=== PATIENT | male | born 1945 | race Caucasian/White ===

== ENCOUNTER 2017-03-28 13:29 | Emergency (ER) | payer OTHER ==
[2017-03-28 15:39] LABS: BASOPHILS 0.6 % (0-2); HEMATOCRIT 31.3 % (42.0-54.0); HEMOGLOBIN 10.1 g/dL (13.5-17.5); IMMATURE GRANULOCYTES 0.4 % (0-5); LYMPHOCYTES 30.7 % (15-50); MCH 32.4 pg (26.0-34.0); MCHC 32.3 g/dL (31.0-37.0); MCV 100.3 fL (80.0-100.0); MEAN PLATELET VOLUME 11.8 fL (7.4-10.4); MONOCYTES 8.1 % (2-11); NEUTROPHILS 56.2 % (40-80); RBC 3.12 10x6/uL (4.20-6.10); RDW 18.4 % (11.5-14.5)
[2017-03-28 15:42] LABS: PLATELET COUNT 151 10x3/uL (130-400)
[2017-03-28 15:50] LABS: APTT 41.4 SECONDS (22.8-39.4); INR 1.03 (0.85-1.17); PROTIME 13.4 SECONDS (11.6-15.0)
[2017-03-28 16:13] LABS: ALBUMIN 2.2 g/dL (3.4-5.0); ALKALINE PHOSPHATASE 146 U/L (46-116); ALT (SGPT) 22 U/L (10-68); BILIRUBIN - TOTAL 0.23 mg/dL (0.2-1.3); CALC OSMOLALITY 272 mosm/kg (275-300); CALCIUM 9.1 mg/dL (8.5-10.1); CARBON DIOXIDE 34.5 mmol/L (21.0-32.0); CHLORIDE - SERUM 100 mmol/L (98-107); CREATININE - SERUM 0.9 mg/dL (0.6-1.3); GLUCOSE 73 mg/dL (74-106); POTASSIUM - SERUM 3.7 mmol/L (3.5-5.1); SODIUM 136 mmol/L (136-145); UREA NITROGEN 18 mg/dL (7-18); eGFR NON AFRICAN AMERICAN 89 mL/min (90-120)
== END 2017-03-28 17:08 | disposition home or self-care (01) ==
LOC: D.ER 13:29
PROVIDERS: Physician Assistant Medical
DX: K94.19 Other complications of enterostomy (principal); C90.00 Multiple myeloma not having achieved remission; C18.9 Malignant neoplasm of colon, unspecified

== ENCOUNTER 2017-05-20 18:21 | Inpatient (IN) | payer MEDICARE ==
[~2017-05-20] VITALS: Ht 188 cm; Wt 57.0 kg
[2017-05-20 21:14] LABS: BASOPHILS 0.3 % (0-2); EOSINOPHILS 1.7 % (0-7); HEMATOCRIT 30.2 % (42.0-54.0); HEMOGLOBIN 9.9 g/dL (13.5-17.5); IMMATURE GRANULOCYTES 0.3 % (0-5); LYMPHOCYTES 15.3 % (15-50); MCH 34.4 pg (26.0-34.0); MCHC 32.8 g/dL (31.0-37.0); MCV 104.9 fL (80.0-100.0); MEAN PLATELET VOLUME 12.7 fL (7.4-10.4); MONOCYTES 13.1 % (2-11); NEUTROPHILS 69.3 % (40-80); PLATELET COUNT 166 10x3/uL (130-400); RBC 2.88 10x6/uL (4.20-6.10); RDW 14.8 % (11.5-14.5); WBC 15.1 10x3/uL (4.8-10.8)
[2017-05-20 21:20] LABS: APPEARANCE CLEAR (CLEAR); BILIRUBIN NEGATIVE (NEGATIVE); COLOR YELLOW (YELLOW); GLUCOSE NEGATIVE (NEGATIVE); KETONE NEGATIVE (NEGATIVE); LEUKOCYTE ESTERASE TRACE (NEGATIVE); NITRITE NEGATIVE (NEGATIVE); PROTEIN NEGATIVE (NEGATIVE); SPECIFIC GRAVITY 1.015 (1.005-1.020); UROBILINOGEN NORMAL (NORMAL)
[2017-05-20 21:21] LABS: BACTERIA FEW /hpf (NONE SEEN); EPITHELIAL CELLS 0-5 /hpf (0-5); RED CELLS - URINE OCC /hpf (0-5)
[2017-05-20 21:23] LABS: INR 1.03 (0.85-1.17); PROTIME 13.4 SECONDS (11.6-15.0)
[2017-05-20 21:24] LABS: APTT 32.5 SECONDS (22.8-39.4)
[2017-05-20 21:29] LABS: ALBUMIN 2.4 g/dL (3.4-5.0); ALKALINE PHOSPHATASE 111 U/L (46-116); ALT (SGPT) 18 U/L (10-68); BILIRUBIN - TOTAL 0.43 mg/dL (0.2-1.3); CALC OSMOLALITY 276 mosm/kg (275-300); CALCIUM 9.4 mg/dL (8.5-10.1); CARBON DIOXIDE 32.7 mmol/L (21.0-32.0); CHLORIDE - SERUM 102 mmol/L (98-107); CREATININE - SERUM 0.9 mg/dL (0.6-1.3); GLUCOSE 82 mg/dL (74-106); POTASSIUM - SERUM 4.5 mmol/L (3.5-5.1); PROTEIN - SERUM 7.1 g/dL (6.4-8.2); SODIUM 137 mmol/L (136-145); UREA NITROGEN 24 mg/dL (7-18); eGFR NON AFRICAN AMERICAN 89 mL/min (90-120)
--- NOTE | 2017-05-21 00:55 | NUR ---
RECEIVED FROM ER, IV-RFA, PT SLILL SPITING UP BLOOD,PT IS ALERT AND ORIENTED, BED IS LOW, SRX2, BED ALARM ON , FALL PRECAUTION STARTED, CALL LIGHT IN REACH, WILL CONTINUE TO MONITOR
--- NOTE | 2017-05-21 01:01 | NUR ---
CALL LIGHT IN REACH, WILL CONTINUE WITH PLAN OF CARE.
[2017-05-21 01:33] VITALS: BMI 14.1
[2017-05-21 04:00] VITALS: BP 107/57
--- NOTE | 2017-05-21 07:52 | NUR ---
MELLISSA B/P IS 82/42 AND 98/54. CALL PLACED TO TRAVIS GUTIERRES.
[2017-05-21 08:11] VITALS: BP 98/54
--- NOTE | 2017-05-21 08:34 | NUR ---
CARY GUTIERRES TO CALL BACK WITH NEW ORDERS.
--- NOTE | 2017-05-21 09:04 | NUR ---
J TUBE SEEN TO ABDOMINAL AREA, CLAMPED. GENTLY FLUSHED WITH 60 CC WATER AND RECLAMPED. BLANCHABLE BONE PROMINENCE TO SACRAL AREA, MEPILEX PLACED AND DATED. ENCOURAGED TO TURN OFTEN. PATIENT STATES HE IS LEGALLY BLIND. BED ALARM IS ON.
[2017-05-21] MEDS ORDERED: COMBIVENT RESPIM4 GM INH (10:27)
[2017-05-21] MEDS ORDERED: REFRESH TEARS15 ML EACH EYE (10:28)
[2017-05-21] MEDS ORDERED: ZYRTEC10 MG PT (10:29)
[2017-05-21] MEDS ORDERED: VITAMIN D2000 UNIT PT (10:29)
[2017-05-21] MEDS ORDERED: DURAGESIC1 PATCH .1 TRANSDERM (10:30)
[2017-05-21] MEDS ORDERED: PROSCAR5 MG PT (10:30)
[2017-05-21] MEDS ORDERED: FLUOROMETHOLONE5 ML EACH EYE (10:33)
[2017-05-21] MEDS ORDERED: NEURONTIN 300300 MG PT (10:34)
[2017-05-21] MEDS ORDERED: IPRATROPIUM BR21 MCG NASAL (10:35)
[2017-05-21] MEDS ORDERED: NIZORAL 2 % CRE15 GM TOPICAL (10:36)
[2017-05-21] MEDS ORDERED: NIZORAL 2 % SH120 ML TOPICAL (10:37)
[2017-05-21] MEDS ORDERED: SYNTHROID200 MC1 PT (10:42)
[2017-05-21] MEDS ORDERED: CENTRUM SILVER1 TA1 PT (10:43)
[2017-05-21 10:50] VITALS: Ht 188 cm; Wt 57.0 kg
[2017-05-21] MEDS ORDERED: OXYCODONE HCL5 MG PT (10:58)
[2017-05-21] MEDS ORDERED: MIRALAX17 GM PT (10:59)
[2017-05-21] MEDS ORDERED: PROTONIX40 MG PT (10:59)
[2017-05-21] MEDS ORDERED: PREDNISONE2.5 MG PT (11:00)
[2017-05-21] MEDS ORDERED: ZANTAC150 MG PT (11:01)
[2017-05-21] MEDS ORDERED: SENNA LAXATIVE8.6 MG PT (11:03)
--- NOTE | 2017-05-21 11:04 | NUR ---
Nutrition Note: When okay with MD/pt rec begin TF of Osmolite 1.5 @ 20 ml/hr. Advance 10 ml every 4-6 hours as tolerated to goal rate of 40 ml/hr. Water flushes 25 ml/hr. RD following.
[2017-05-21 12:08] VITALS: BP 93/43
--- NOTE | 2017-05-21 14:05 | NUR ---
BILATERAL SCD'S PLACED ORDERED.
--- NOTE | 2017-05-21 14:35 | NUR ---
CALLED SYDNEE IN CT AND TOLD HIM THAT APPROX. 240 CC WAS INSTILLED THRU J TUBE.
--- NOTE | 2017-05-21 14:40 | NUR ---
PLACED ON HEART MONITOR SHOWING SR, HR 96
[2017-05-21 15:17] VITALS: BP 101/60
--- NOTE | 2017-05-21 15:30 | NUR ---
Patient Name: CHRISTI MOHAMUD Admission Status: ER Accout number: [id number] Admission Date: 05-20-2017 : 1945 Admission Diagnosis:HEMOPTYSIS Attending: DADA Current LOS: 1 Anticipated DC Date: Planned Disposition: [place] facility Primary Insurance: MEDICARE A & B PLANNED EXTERNAL PROVIDER: [facility] Discharge Planning Comments: * Is the patient Alert and Oriented? Yes 0 * How many steps to enter\exit or inside your home? NONE 0 * PCP [facility] 0 * Pharmacy [facility] OR [facility] 0 * Preadmission Environment Home with Family 0 * ADLs Partial Dependent 0 * Partial ADLs (Assistance needed) Ambulation Transfers 0 * Equipment Enteral Feeding and Supplies Oxygen Rolling Walker Wheelchair 0 * Other Equipment [facility] - MEDICAL EQUIPMENT PROVIDER 0 * List name and contact numbers for known caregivers / representatives who currently or will assist patient after discharge: EMILI MOHAMUD, SPOUSE, 0 * Community resources currently utilized Home Health Private Duty Care [place] Services 0 * Please name any agencies selected above. [employer] [facility] [address] [place] PERSONAL CARE 2X WEEKLY 0 * Additional services required to return to the preadmission environment? No 0 * Can the patient safely return to the preadmission environment? Yes 0 * Has this patient been hospitalized within the prior 30 days at any hospital? No 0 CM MET WITH PT AND SPOUSE IN ROOM TO DISCUSS DISCHARGE PLANNING AND NEEDS. PT REPORTS LIVING AT HOME DEPENDENT ON SPOUSE FOR ASSISTANCE. PT HAS ALL NEEDED MEDICAL EQUIPMENT FROM [place], RECEIVES PRIMARY CARE AND PRESCRIPTIONS FROM [place]. PT HAS [facility] THROUGH [place] AND PERSONAL CARE FROM [facility] [employer] TWICE WEEKLY FOR SHOWERS THROUGH [place]. CM DISCUSSED AVAILABILITY OF HOME HEALTH, REHAB SERVICES AND MEDICAL EQUIPMENT. PT UNSURE OF DISCHARGE NEEDS, REPORTS SPOUSE WILL PICK HIM UP FOR DISCHARGE HOME. CM DISCUSSED PT'S STATUS IN HOSPITAL WITH MEDICARE PAYING 80%; PT'S SPOUSE WOULD RATHER PT STAY AT [place] IT IS CLOSER TO HOME, PT AND SPOUSE WOULD LIKE [place] TO PAY OTHER 20%, REQUESTED PT BE PLACED ON [place] TRANSFER LIST AND PT WILL TRANSFER IF AND WHEN BED IS AVAILABLE. CM CALLED [place] EXPEDITOR, , SPOKE TO [facility] AND PLACED PT ON [place] TRANSFER LIST. [facility] TO CONTACT HOSPITAL WHEN BED BECOMES AVAILABLE. Rubber And Pounder: Stephane Carroll
--- NOTE | 2017-05-21 15:46 | NUR ---
TO CT VIA BED.
--- NOTE | 2017-05-21 16:08 | NUR ---
RETURNS FROM CT. TUBE FEEDING HOOKED UP.
--- NOTE | 2017-05-21 16:15 | NUR ---
COMPLAINTS OF RIGHT SHOULDER PAIN 08/08, OXY. 5 MG CRUSHED AND GIVEN THRU THE J TUBE.
[2017-05-21 19:00] VITALS: BP 88/52
--- NOTE | 2017-05-21 19:37 | NUR ---
RECEIVED REPORT, ASSUMED CARE OF PT, PT IN SITTING UP IN BED, O2-2L, SCD ARE ON, BED IS LOW, SRX2, BED ALARM IS ON, CALL LIGHT IN REACH, WILL CONTINUE PLAN OF CARE
--- NOTE | 2017-05-21 20:35 | NUR ---
INCREASED TUBE FEEDING BY 10=30. WILL MONITOR
[2017-05-22] VITALS: BP 96/55
--- NOTE | 2017-05-22 03:33 | NUR ---
ASSESSMENT COMPLETE, PT SLEEPING, BED IS LOW, SRX2, BED ALARM ON, INCREASED FEEDING TO 40ML, CALL LIGHT IN REACH, WILL CONTINUE PLAN OF CARE
[2017-05-22 05:27] LABS: BASOPHILS 0.1 % (0-2); EOSINOPHILS 0 % (0-7); HEMATOCRIT 26.4 % (42.0-54.0); HEMOGLOBIN 8.6 g/dL (13.5-17.5); IMMATURE GRANULOCYTES 0.5 % (0-5); LYMPHOCYTES 5.1 % (15-50); MCHC 32.6 g/dL (31.0-37.0); MCV 104.3 fL (80.0-100.0); MEAN PLATELET VOLUME 12.1 fL (7.4-10.4); MONOCYTES 1.8 % (2-11); NEUTROPHILS 92.5 % (40-80); PLATELET COUNT 153 10x3/uL (130-400); RBC 2.53 10x6/uL (4.20-6.10); RDW 14.9 % (11.5-14.5)
[2017-05-22 05:28] LABS: WBC 19.1 10x3/uL (4.8-10.8)
[2017-05-22 05:42] LABS: ALBUMIN 2.1 g/dL (3.4-5.0); ALKALINE PHOSPHATASE 94 U/L (46-116); ALT (SGPT) 16 U/L (10-68); BILIRUBIN - TOTAL 0.24 mg/dL (0.2-1.3); CALC OSMOLALITY 277 mosm/kg (275-300); CALCIUM 8.6 mg/dL (8.5-10.1); CHLORIDE - SERUM 103 mmol/L (98-107); CREATININE - SERUM 0.9 mg/dL (0.6-1.3); GLUCOSE 153 mg/dL (74-106); MAGNESIUM - SERUM 1.9 mg/dL (1.8-2.4); PHOSPHOROUS 3.3 mg/dL (2.5-4.9); PROTEIN - SERUM 6.2 g/dL (6.4-8.2); SODIUM 136 mmol/L (136-145); UREA NITROGEN 22 mg/dL (7-18); eGFR NON AFRICAN AMERICAN 89 mL/min (90-120)
--- NOTE | 2017-05-22 07:40 | NUR ---
PT RECEIVING RESP TX AT THIS TIME. PT HAS [employer] CURRENTLY RUNNING OSMOLITE 1.5 AT 40ML/HR. PT HAS FENTANYL PATCH ON LEFT UPPER ARM. PT HAS A MEPILEX DRESSING TO COCCYX DUE TO REDNESS. PT DENIES NEEDS AT THIS TIME. WCTM.
[2017-05-22 08:00] VITALS: BP 97/47
--- NOTE | 2017-05-22 09:11 | NUR ---
SPOKE WITH DR GAYLE. [facility] [place] AND [email or web address] 2G Q8 ORDERED.
--- NOTE | 2017-05-22 10:26 | NUR ---
PT REQ AND REC'D PRN PAIN MEDICATION. PT MEDS CRUSHED AND GIVEN VIA J TUBE. PT DENIES NEEDS.
--- NOTE | 2017-05-22 12:05 | NUR ---
PT MANUAL BP 98/56. DRAINAGE ALSO NOTED FROM JTUBE SITE. FELIPE NOTIFIED.
[2017-05-22 16:24] VITALS: BP 85/41
[2017-05-22 19:00] VITALS: BP 89/46
[2017-05-23] VITALS: BP 100/40
--- NOTE | 2017-05-23 01:30 | NUR ---
RECIEVED PATIENT AND REPORT, ALERT AND ORIENTED, SIDERAILS UP X 2, CALL LIGHT AND BEDSIDE TABLE INREACH, BED IN LOWEST LOCKED POSITION, NO ACUTE DISTRESS NOTED, PRN OXYCODONE GIVEN FOR BACK PAIN AT 1945, OC,
[2017-05-23 04:00] VITALS: BP 78/49
--- NOTE | 2017-05-23 04:37 | NUR ---
GREEN BILE LEAKING FROM J TUBE SITE AT 0400, FEEDING PUMP STOPPED, PHYSICIAN TO JADA IN AM.
[2017-05-23 06:30] LABS: HEMATOCRIT 25.4 % (42.0-54.0); HEMOGLOBIN 8.2 g/dL (13.5-17.5); MCH 33.7 pg (26.0-34.0); MCHC 32.3 g/dL (31.0-37.0); MCV 104.5 fL (80.0-100.0); MEAN PLATELET VOLUME 13.1 fL (7.4-10.4); PLATELET COUNT 147 10x3/uL (130-400); RBC 2.43 10x6/uL (4.20-6.10); RDW 15.1 % (11.5-14.5)
[2017-05-23 06:58] LABS: LYMPHOCYTES 1 % (15-50); NEUTROPHILS 94 % (40-80); PLATELET ESTIMATE NORMAL
[2017-05-23 06:59] LABS: POIKILOCYTOSIS OCC
--- NOTE | 2017-05-23 07:00 | NUR ---
RECEIVED REPORT. ASSUMED CARE OF PATIENT. CALL LIGHT WITHIN REACH. SITTING UP IN BED RECEIVING NEBULIZER TX AT THIS TIME. DENIES NEEDS. NO DISTRESS.
[2017-05-23 07:08] LABS: % SATURATION 41 % (15-55); ALBUMIN 2.1 g/dL (3.4-5.0); ALKALINE PHOSPHATASE 83 U/L (46-116); ALT (SGPT) 16 U/L (10-68); CALCIUM 8.7 mg/dL (8.5-10.1); CARBON DIOXIDE 27.4 mmol/L (21.0-32.0); CHLORIDE - SERUM 105 mmol/L (98-107); CREATININE - SERUM 0.9 mg/dL (0.6-1.3); FERRITIN 531 ng/mL (3-244); GLUCOSE 128 mg/dL (74-106); IRON 77 ug/dl (35-150); PROTEIN - SERUM 6.2 g/dL (6.4-8.2); SODIUM 136 mmol/L (136-145); TOTAL IRON BIND CAPACITY 185 ug/dl (260-445); UNSAT IRON BIND CAPACITY 108 ug/dl (150-375); eGFR NON AFRICAN AMERICAN 89 mL/min (90-120)
[2017-05-23 07:10] LABS: CALC OSMOLALITY 279 mosm/kg (275-300); UREA NITROGEN 29 mg/dL (7-18)
[2017-05-23 08:00] VITALS: BP 84/39
[2017-05-23 12:50] VITALS: BP 93/48
--- NOTE | 2017-05-23 20:12 | NUR ---
PT AWAKE, ALERT, ORIENTED, LYING IN BED, HOB 40-45 DEGREES. PT'S TUBE FEEDING HAS LEAKED BUT IS NOT INFUSING PROPERLY WITHOUT ANY DIFFICULTY. PT DENIES ANY NEEDS AT THIS TIME. CONTINUE TO MONITOR CLOSELY.
--- NOTE | 2017-05-23 23:27 | NUR ---
I WAS TOLD IN SHIFT REPORT THAT PT WAS TO RECEIVE 2 UNITS OF PRBC'S AND THAT THE BLOOD IS READY FROM LAB. AFTER READING BOTH DR. FARIA AND DR. HODGES'S NOTES FROM TODAY, BOTH STATE NO TRANSFUSION AT THIS TIME. ALSO THERE IS NO ORDER IN NURSING NOTES FOR TRANSFUSION AT THIS TIME. WILL CONFIRM IN THE MORNING. CONTINUE TO MONITOR CLOSELY.
--- NOTE | 2017-05-24 02:13 | NUR ---
PT LYING IN BED, EYES CLOSED, RESPIRATIONS EVEN AND UNLABORED, RESTING COMFORTABLY. CONTINUE TO MONITOR CLOSELY.
--- NOTE | 2017-05-24 03:58 | NUR ---
BAG AND FEEDING CHANGED FOR J-TUBE. PT AWAKE, ALERT, ORIENTED, DENIES ANY NEEDS. CONTINUE TO MONITOR CLOSELY.
[2017-05-24 04:00] VITALS: BP 99/50
[2017-05-24 05:13] LABS: BASOPHILS 0.1 % (0-2); EOSINOPHILS 0 % (0-7); HEMATOCRIT 26.8 % (42.0-54.0); HEMOGLOBIN 8.7 g/dL (13.5-17.5); IMMATURE GRANULOCYTES 0.7 % (0-5); LYMPHOCYTES 1.1 % (15-50); MCH 34.4 pg (26.0-34.0); MCHC 32.5 g/dL (31.0-37.0); MCV 105.9 fL (80.0-100.0); MEAN PLATELET VOLUME 13.2 fL (7.4-10.4); MONOCYTES 2.7 % (2-11); NEUTROPHILS 95.4 % (40-80); PLATELET COUNT 142 10x3/uL (130-400); RBC 2.53 10x6/uL (4.20-6.10); RDW 15.3 % (11.5-14.5); WBC 34.3 10x3/uL (4.8-10.8)
[2017-05-24 05:27] LABS: ALKALINE PHOSPHATASE 75 U/L (46-116); ALT (SGPT) 14 U/L (10-68); BILIRUBIN - TOTAL 0.21 mg/dL (0.2-1.3); CALC OSMOLALITY 281 mosm/kg (275-300); CALCIUM 8.6 mg/dL (8.5-10.1); CARBON DIOXIDE 21.9 mmol/L (21.0-32.0); CHLORIDE - SERUM 107 mmol/L (98-107); CREATININE - SERUM 0.8 mg/dL (0.6-1.3); GLUCOSE 161 mg/dL (74-106); POTASSIUM - SERUM 4.5 mmol/L (3.5-5.1); PROTEIN - SERUM 5.9 g/dL (6.4-8.2); SODIUM 136 mmol/L (136-145); UREA NITROGEN 31 mg/dL (7-18); eGFR NON AFRICAN AMERICAN > 90 mL/min (90-120)
--- NOTE | 2017-05-24 07:45 | NUR ---
AM ROUNDS - PT IS AWAKE IN BED WITH J-TUBE FEEDING GOING AT 40CC/HR WITH A 25CC FLUSH/HR. MONITOR SHOWING SR, HR 93. CALL AVILA IN USE/REACH, BED AT LOWEST POSITION, SIDE RAILS UP X2. PT ON 2L VIA NC. RIGHT FA, NS AT 50CC/HR. NO NEEDS AT THIS TIME. WILL CONTINUE TO MONITOR
[2017-05-24 08:21] VITALS: BP 80/42
[2017-05-24 11:51] VITALS: BP 95/68
--- NOTE | 2017-05-24 12:35 | NUR ---
Nutrition follow-up: Diet: Pt remains NPO due to severe dysphagia; working with speech Osmolite 1.5 court infusing @ 40 ml/hr with 25 ml H2O flush every hour NS @ 50 ml/hr Labs reviewed Wt: 116# Pt tolerating TF at this time. RDN following.
[2017-05-24 14:14] LABS: IMMUNOGLOBULIN A 134 mg/dL (61-437); IMMUNOGLOBULIN G 1765 mg/dL (700-1600)
--- NOTE | 2017-05-24 14:27 | NUR ---
PT J-TUBE APPEARS TO BE LEAKING. YELLOW GREENINISH IN COLOR. FLUSHED WELL WITH WATER. NO RESIDUAL. STOPED FEEDING AND CLEANED UP WITH WARM WATER, APPLIED A DRAIN SPONGE. WILL RECHECK
[2017-05-24 17:11] VITALS: BP 92/49
--- NOTE | 2017-05-24 18:56 | NUR ---
PT IN BED. TUBE FEEDING WAS LEAKING TODAY. FELIPE CALLED AND SAID CONSULT SURGERY. DR LUNDBERG CAME AND LOOKED AND SAID THAT TUBE FEEDING CAN BE RESTARTED. DR LUNDBERG SAID TO PLACE SOME DRESSINGS AROUND THE TUBE AND THAT J-JUBES SOMETIMES LEAK. WILL CONTINUE TO MONITOR
--- NOTE | 2017-05-24 19:50 | NUR ---
PT SIT UP IN BED AND LISTEN TO TV NEWS.
[2017-05-24 21:25] VITALS: BP 114/63; BP 90/46
--- NOTE | 2017-05-25 00:40 | NUR ---
FAITH DOCTOR AT BEDSIDE FOR VS. NEEDS ADDRESSED AT THIS TIME. CALL LIGHT IN REACH. WILL CONT TO MONITOR.
[2017-05-25 01:00] VITALS: BP 96/50
--- NOTE | 2017-05-25 02:06 | NUR ---
PT REST IN BED WITH EYE CLOSE, BED LOW, CALL LIGHT WITHIN REACH.
[2017-05-25 04:00] VITALS: BP 109/60
[2017-05-25 04:54] LABS: BASOPHILS 0 % (0-2); EOSINOPHILS 0 % (0-7); HEMATOCRIT 29.5 % (42.0-54.0); HEMOGLOBIN 9.6 g/dL (13.5-17.5); IMMATURE GRANULOCYTES 0.7 % (0-5); LYMPHOCYTES 1.4 % (15-50); MCH 34.2 pg (26.0-34.0); MCHC 32.5 g/dL (31.0-37.0); MEAN PLATELET VOLUME 12.7 fL (7.4-10.4); MONOCYTES 5.4 % (2-11); NEUTROPHILS 92.5 % (40-80); PLATELET COUNT 147 10x3/uL (130-400); RBC 2.81 10x6/uL (4.20-6.10); RDW 15.1 % (11.5-14.5); WBC 28.5 10x3/uL (4.8-10.8)
[2017-05-25 05:02] LABS: ALBUMIN 2.1 g/dL (3.4-5.0); ALKALINE PHOSPHATASE 83 U/L (46-116); BILIRUBIN - TOTAL 0.27 mg/dL (0.2-1.3); CALC OSMOLALITY 279 mosm/kg (275-300); CALCIUM 8.7 mg/dL (8.5-10.1); CARBON DIOXIDE 25.4 mmol/L (21.0-32.0); CHLORIDE - SERUM 106 mmol/L (98-107); CREATININE - SERUM 0.8 mg/dL (0.6-1.3); GLUCOSE 119 mg/dL (74-106); POTASSIUM - SERUM 4.6 mmol/L (3.5-5.1); PROTEIN - SERUM 6.1 g/dL (6.4-8.2); SODIUM 136 mmol/L (136-145); UREA NITROGEN 31 mg/dL (7-18); eGFR NON AFRICAN AMERICAN > 90 mL/min (90-120)
[2017-05-25 05:09] LABS: ALT (SGPT) 68 U/L (10-68)
--- NOTE | 2017-05-25 05:17 | NUR ---
PT RT FOREARM IV LEAK, RESTART IV RT WRIST, 22G, GOOD BLOOD RETURN AND FLOSHES WITHOUT RESISTANCE, SECURED WITH TAPE,PT TOLERATE WELL.
--- NOTE | 2017-05-25 07:00 | NUR ---
RECEIVED REPORT. ASSUMED CARE OF PATIENT. TOLERATING JTUBE FEEDING WELL. RESP EVEN AND UNLABORED. NO DISTRESS. CALL LIGHT WITHIN REACH.
[2017-05-25 08:00] VITALS: BP 108/59
--- NOTE | 2017-05-25 11:01 | NUR ---
MEDICATED FOR PAIN AT THIS TIME. NO DISTRESS.
[2017-05-25 12:00] VITALS: BP 106/57
--- NOTE | 2017-05-25 15:03 | NUR ---
SITTING IN BED, LISTENING TO TELEVISION AT THIS TIME. TOLERATING TUBE FEEDING WELL. SLIGHT DRAINAGE NOTED FROM AROUND JTUBE INSERTION SITE. PROCALAMINE DISCONTINUED AT THIS TIME PATIENT IS ON TUBE FEEDING. NO DISTRESS.
[2017-05-25 16:00] VITALS: BP 96/53
--- NOTE | 2017-05-25 16:56 | NUR ---
DRESSING CHANGE PROVIDED TO J-TUBE DUE TO SLIGHT LEAKAGE. TOLERATING TUBE FEEDING WELL. NO DISTRESS. IV FLUIDS INFUSING ORDERED.
--- NOTE | 2017-05-25 17:07 | NUR ---
ANDRES VALVE PLACED ON J-TUBE AT THIS TIME. NO DISTRESS.
--- NOTE | 2017-05-25 19:10 | NUR ---
ALERT/AWAKE REQUESTED MORE LEMON SWABS. DENIES PAIN. IV IN R WRIST WITH NS INFUSING AT 50 ML/HR. ON 02 AT 2L/NC. RR 18 EVEN U/L. TELEMETRY LEADS IN PLACE. J TUBE WITH OSMOLITE INFUSING AT 40ML/HR. SCD'S ARE ON. TALKS IN A RASPY WHISPER. ORIENTED TO CALL LIGHT FOR ANY NEEDS OR DISCOMFORTS.
[2017-05-25 20:47] VITALS: BP 101/56
--- NOTE | 2017-05-25 22:10 | NUR ---
ADMIN OXYCODONE IR 5MG PO CRUSHED WITH OTHER SCHED MEDS CRUSHED DILUTED WITH WATER AND ADMIN THROUGHT J TUBE. REPOSITIONED UP IN BED WITH ELECTRO TECH ASSISTING. DENIES ANY OTHER NEEDS.
[2017-05-26 00:39] VITALS: BP 96/51
[2017-05-26 05:14] LABS: BASOPHILS 0 % (0-2); EOSINOPHILS 0 % (0-7); HEMATOCRIT 29.1 % (42.0-54.0); HEMOGLOBIN 9.6 g/dL (13.5-17.5); IMMATURE GRANULOCYTES 0.7 % (0-5); LYMPHOCYTES 1.4 % (15-50); MCH 34.3 pg (26.0-34.0); MCV 103.9 fL (80.0-100.0); MEAN PLATELET VOLUME 13.3 fL (7.4-10.4); MONOCYTES 5.3 % (2-11); NEUTROPHILS 92.6 % (40-80); PLATELET COUNT 139 10x3/uL (130-400); RDW 15.1 % (11.5-14.5); WBC 21.7 10x3/uL (4.8-10.8)
[2017-05-26 05:39] LABS: ALKALINE PHOSPHATASE 79 U/L (46-116); ALT (SGPT) 72 U/L (10-68); BILIRUBIN - TOTAL 0.28 mg/dL (0.2-1.3); CALC OSMOLALITY 278 mosm/kg (275-300); CHLORIDE - SERUM 104 mmol/L (98-107); CREATININE - SERUM 0.8 mg/dL (0.6-1.3); GLUCOSE 148 mg/dL (74-106); POTASSIUM - SERUM 4.4 mmol/L (3.5-5.1); PROTEIN - SERUM 5.7 g/dL (6.4-8.2); SODIUM 135 mmol/L (136-145); UREA NITROGEN 30 mg/dL (7-18); eGFR NON AFRICAN AMERICAN > 90 mL/min (90-120)
[2017-05-26 05:49] VITALS: BP 110/63
[2017-05-26 06:09] LABS: CALCIUM 8.2 mg/dL (8.5-10.1)
[2017-05-26 08:00] VITALS: BP 108/49
--- NOTE | 2017-05-26 08:01 | NUR ---
AM ROUNDS - PT IS AWAKE IN BED. J-TUBE TO LEFT SIDE ABDOMEN WITH OSMOLITE 1.5 AT 40CC/HR WITH 25CC/HR FLUSH. IV TO RIGHT WRIST WITH NS AT 50CC/HR. PT HAS NON SKID SOCKS ON. O2 AT 2L VIA NC. PT C/O RIGHT EAR BEING "CLOGGED". PT HAS AN ORDER FOR SCD, OFF AT THIS TIME. NO FUTHER NEEDS AT THIS TIME. WILL CONTINUE TO MONITOR.
[2017-05-26 12:46] VITALS: BP 115/55
[2017-05-26 15:22] LABS: SPE - A/G RATIO 0.8 (0.7-1.7); SPE - ALBUMIN 2.4 g/dL (2.9-4.4); SPE - ALPHA-1 GLOBULIN 0.3 g/dL (0.0-0.4); SPE - ALPHA-2 GLOBULIN 0.6 g/dL (0.4-1.0); SPE - BETA GLOBULIN 0.7 g/dL (0.7-1.3); SPE - GAMMA GLOBULIN 1.5 g/dL (0.4-1.8); SPE - M-SPIKE Not Observed g/dL (Not Observed); SPE - TOTAL PROTEIN 5.5 g/dL (6.0-8.5)
--- NOTE | 2017-05-26 15:48 | NUR ---
Patient Name: CHRISTI MOHAMUD Encounter No: [id number] : 1945 Primary Insurance: MEDICARE A & B Anticipated DC Date: Planned Disposition: [place] facility External Planned Provider: [facility] DC follow-up note: CM RECEIVED CALL FROM CHAR MOHAMUD, [place] NURSE, , WHO REQUESTED TODAY'S CLINICAL NOTES. CM FAXED PULMONARY NOTE AND DAILY REVIEW INFORMATION TO [place] AT [phone]. PT AND SPOUSE UPDATED. CM CONTINUES TO AWAIT BED AVAILABLITY FOR [facility] TRANSFER. Stephane Carroll, CASE MANAGEMENT
[2017-05-26 15:58] VITALS: BP 125/65
--- NOTE | 2017-05-26 18:18 | NUR ---
PT IN BED. DINNER COMPLETE. NO NEEDS AT THIS TIME. WILL CONTINUE TO MONITOR
[2017-05-26 19:00] VITALS: BP 112/63
--- NOTE | 2017-05-26 19:32 | NUR ---
PT SITTING ON SIDE OF BED WATCHING NEWS. NS INFUSING AT 50ML TO RIGHT WRIST IV. IV PATENT. CLEAN DRESSING AND ALCHOL SWABS IN USE. J TUBE FEEDING AT 40ML PER HOUR AND WATER FLUSH 25 ML EVERY HOUR. J TUBE LLQ DRESSING CLEAN AND DRY. OXYGEN ON 2L NC. PT ASKS ABOUT ATIVAN. NO S/S OF DISTRESS PT DENIES ANY OTHER NEEDS WILL CONTINUE TO MONITOR
[2017-05-27] VITALS: BP 113/70
--- NOTE | 2017-05-27 00:57 | NUR ---
PT IN BED RESTING. NO S/S OF DISTRESS PT DENIES ANY NEEDS WILL CONTINUE TO MONITOR
--- NOTE | 2017-05-27 02:57 | NUR ---
PT UP TO USE URINAL. STAND AT SIDE OF BED FOR 5 MINS. STAND BYE ASSIST WHILE STANDING. NEEDED ASSISTANCE OUT OF BED. PT BACK IN BED AFTERWARDS. DENIES ANY NEEDS. NO S/S OF DISTRESS WILL CONTINUE TO MONITOR
[2017-05-27 04:00] VITALS: BP 99/57
--- NOTE | 2017-05-27 06:24 | NUR ---
PT RESTING IN BED. DENIES ANY NEEDS. NO S/S OF DISTRESS WILL CONTINUE TO MONITOR
[2017-05-27 07:54] VITALS: BP 95/51
--- NOTE | 2017-05-27 09:28 | NUR ---
Patient Name: CHRISTI MOHAMUD Encounter No: [id number] : 1945 Primary Insurance: MEDICARE A & B Anticipated DC Date: Planned Disposition: [place] facility External Planned Provider: [facility] DC follow-up note: CM FAXED YESTERDAYS DR TREVIOZ, THERAPY NOTE AND TODAYS DAILY REVIEW INFORMATION TO CHAR MOHAMUD [place] NURSE AT [phone]. CM CONTINUES TO AWAIT BED AVAILABLITY FOR [facility] TRANSFER. Stephane Carroll, CASE MANAGEMENT
--- NOTE | 2017-05-27 09:31 | NUR ---
NS AT BS GIVING MEDS PER PEG TUBE. CALL LIGHT IN REACH. WILL CONT. PLAN OF CARE.
[2017-05-27 12:20] VITALS: BP 96/52
--- NOTE | 2017-05-27 12:50 | NUR ---
Nutrition follow-up: Pt remains NPO; working with speech on swallow. Osmolite 1.[address] court infusing @ 40 ml/hr via j-tube 25 ml H2O flush every hour Labs reviewed Wt: 115# Pt tolerating TF at current rate. RDN following.
[2017-05-27 15:50] VITALS: BP 120/66
--- NOTE | 2017-05-27 16:57 | NUR ---
WITHOUT CHANGES OR DISTRESS NOTED AT THIS TIME. DENIES NEEDS.
--- NOTE | 2017-05-27 19:44 | NUR ---
AWAKE ALERT DENIES ANY NEEDS. IV IN R WRIST INTACT WITH NS INFUSING AT 50ML/HR. 0N 02 AT 2L/NC. RR EVEN U/L. SPEAKS IN A HOARSE WHISPER. J TUBE WITH OSMOLITE INFUSING AT 40ML/HR. INSERTION SITE C/D/I. SKIN TEAR WITH DRSG ON RT FOREARM. ORIENTED TO CALL LIGHT FOR ANY NEEDS.
[2017-05-27 20:40] VITALS: BP 100/48
--- NOTE | 2017-05-27 21:00 | NUR ---
ADMIN SCHED MEDS AND OXYCODONE FOR C/O SHOULDER/BACK PAIN LEVEL 8 ON NUMBER SCALE, CRUSHED THROUGH J TUBE. ADMIN EYE DROPS AND NASAL SPRAY. REQUESTED LIGHT OVER SINK OFF AND DOOR CLOSED TO SLEEP.
[2017-05-28 00:03] VITALS: BP 114/60
--- NOTE | 2017-05-28 01:20 | NUR ---
ADMIN ATIVAN 0.5MG IV PER REQUEST FOR C/O ANXIETY. NO OTHER NEEDS VOICED.
--- NOTE | 2017-05-28 04:08 | NUR ---
CHANGED FEEDING TUBE BAGS. CHANGED J-TUBE DRESSING. WET FROM INCONTINENCE OF URINE. CHANGED GOWN AND BEDDING.
[2017-05-28 04:17] VITALS: BP 97/50
--- NOTE | 2017-05-28 07:41 | NUR ---
AM ROUNDS - PT APPEARS TO BE SLEEPING WITH EQUAL AND NON LABORED BREATHING. OSMOLITE 1.5 AT 40CC/HR WITH 25CC/HR FLUSH TO J-TUBE. YELLOW BAND ON. NON SKID SOCKS ON. SIDE RAILS X2. BED AT LOWEST POSITION. CALL AVILA IN USE/REACH. OS AT 2L VIA NC. IV TO RIGHT WRIST, NS AT 50CC/HR. REFUSES SCD. WILL CONININUE TO MONITOR
[2017-05-28 08:20] VITALS: BP 112/67
--- NOTE | 2017-05-28 09:51 | NUR ---
MORNING MEDICATION GIVEN. PT TOLERATED WELL. PT C/O RIGHT EAR BEING "CLOGGED". NO FUTHER NEEDS AT THIS TIME. WILL CONTINUE TO MONITOR
--- NOTE | 2017-05-28 11:12 | NUR ---
Patient Name: CHRISTI MOHAMUD Encounter No: [id number] : 1945 Primary Insurance: MEDICARE A & B Anticipated DC Date: 05-28-2017 Planned Disposition: HOME DCP follow-up note: CM RECEIVED TELEPHONE MESSAGE FROM CHAR MOHAMUD [place] NURSE, , ASKING FOR UPDATE. CM REVIEWED CHART WHICH INDCATES PLAN FOR DISCHARGE TODAY. CM FAXED YESTERDAYS 'S MAZIN TO CHAR MOHAMUD [place] NURSE AT [phone]. CHAR INFORMED CM YESTERDAY THAT SHE IS FORWADING ALL PROVIDED INFORMATION TO [place] [facility] TEACHING DIETITIAN, HOA BAEZA, . CM RECEIVED CALL FROM CHAR MOHAMUD OF [place]; PT IS NOT ON HOSPICE, PT HAS PALLIATIVE CARE FOR SYMPTOM MANAGEMENT (LAST SEEN MAY 03); PT HAS HOME HEALTH AIDE 4 HOURS PER WEEK THROUGH [place]. PT ALSO RECEIVES FEEDING SUPPLIES AND OXYGEN SUPPLIED BY [place]. CM SPOKE TO PT IN ROOM, DISCUSSED DISCHARGE PLAN OF RETURNING HOME TODAY, PT IN AGREEMENT WITH PLAN REPORTS SPOUSE TO TRANSPORT HIM HOME AT DISCHARGE. IMPORTANT MESSAGE FROM MEDICARE PROVIDED AND EXPLAINED. CM SPOKE TO EDITH VENTURA WHO REPORTS RECOMMENDATION OF HOSPICE FOR PT. CM CALLED [facility], [place], , NOTIFIED BY RECEPTIONISTS THAT CM WILL NEED TO FAX HOSPICE ORDER AND DR. RETANA TO [facility], , ATTENTION DR. LI. [place] NURSE TO CONTACT PT AT HOME TO MAKE NECESSARY ARRANGEMENTS. CM NOTIFIED EDITH VENTURA. IF PT HAS IMMEDIATE DISCHARGE NEEDS FROM [place] [facility], PT'S PRIMARY CARE DOCTOR IS DR. EMILI ABDULLAHI AT [facility], . FOR DISCHARGE, FAX DISCHARGE INFORMATION TO [place] NURSE MOHAMUD AT [phone] AND TO [facility] AT [phone]. SERA HENAO, CASE MANAGEMENT
[2017-05-28] MEDS ORDERED: PREDNISONE10 MG PO (11:44)
[2017-05-28 12:31] VITALS: BP 122/60
--- NOTE | 2017-05-28 13:11 | NUR ---
D/C - WRITTEN AND VERBAL D/C INSTRUCTIONS GIVEN TO PT AND PT'S . IV REMOVED TO RIGHT FA, CATH TIP INTACT. PT'S REQUESTED THAT THE [address] WAY VALVE ON THE J-TUBE BE REMOVED AND BACK TO IT WAS WHEN THE PT WAS ADMITTED. [address] REMOV[address]. PT TOLERATED WELL. WILL D/C
--- NOTE | 2017-05-28 13:39 | NUR ---
PT LEFT FLOOR VIA WHEELCHAIR BY VOLUNTEER
== END 2017-05-28 13:40 | disposition home health service (06) | DRG 178 ==
LOC: D.ER 18:21 → D.M2 23:19
PROVIDERS: Emergency Medicine; Internal Medicine Hematology & Oncology; Internal Medicine Pulmonary Disease; ADMIT Family Medicine
DX: J69.0 Pneumonitis due to inhalation of food and vomit (principal); J44.0 Chronic obstructive pulmonary disease with (acute) lower respiratory infection; J98.11 Atelectasis; J44.1 Chronic obstructive pulmonary disease with (acute) exacerbation; J15.6 Pneumonia due to other Gram-negative bacteria; D63.8 Anemia in other chronic diseases classified elsewhere; K21.9 Gastro-esophageal reflux disease without esophagitis; E03.9 Hypothyroidism, unspecified; Z85.79 Personal history of other malignant neoplasms of lymphoid, hematopoietic and related tissues; Z85.038 Personal history of other malignant neoplasm of large intestine